=== PATIENT | female | born 1945 | race Caucasian/White ===

== ENCOUNTER → 2016-10-20 | Outpatient (CLI) | payer OTHER ==
--- NOTE | 2016-10-20 17:48 | DX ---
DEXA Bone Mineral Densitometry Clinical Indications: 71-year-old postmenopausal female with suspected estrogen deficiency low bone mineral density versus osteoporosis. Comparison: None. Technique: Bone Mineral Densitometry (BMD) by Dual Energy X-Ray Absorptiometry (DEXA) was performed utilizing the [employer] scanner. The lumbar spine was evaluated in the AP projection. Bilateral hips and one forearm were evaluated in the AP projection. Vertebral fracture assessment was also per formed. AP Lumbar Spine: The L1, L2, L3 and L4 vertebral bodies are evaluated. BMD: 1.134 gm/cm2 T-score: - 0.5 SD Z-score: 1.7 SD AP Left Hip: BMD: 0.759 gm/cm2 T-score: - 2.0 SD Z-score: 0 SD AP left Forearm: BMD: 0.784 gm/cm2 T-score: -1.0 SD Z-score: 0.7 SD Vertebral Fracture Assessment: No significant fracture deformity. Conclusion: 1. Considering the lowest measured site, the patient has low bone mineral density and is at increased risk for fracture. 2. The ten year risk for any major osteoporotic fracture is 10.1 % and for a hip fracture is 2.1 %. 3. Any bone loss in this patient is probably related to aging or estrogen deficiency. To prevent osteoporosis and to promote the patient's bone density, the following recommendations shou ld be considered: 1. Pursue a regular regimen of weightbearing and muscle strengthening exercises in order to reduce t he risk of falls and fractures (as tolerated by the patient's general medical condition). 2. Check serum hydroxy vitamin D3 level (optimal > 50 ng/ml). 3. Consider follow-up DEXA scan in two years to assess the rate of bone loss in this patient.
== END ==
LOC: BRMIMAGING 10:53
PROVIDERS: ATTEND Internal Medicine
DX: Z13.820 Encounter for screening for osteoporosis (principal); M85.80 Other specified disorders of bone density and structure, unspecified site; Z78.0 Asymptomatic menopausal state

== ENCOUNTER → 2017-11-16 | Outpatient (CLI) | payer OTHER | LOC: FIMAGING 13:19 | PROVIDERS: ATTEND Internal Medicine | DX: Z12.31 Encounter for screening mammogram for malignant neoplasm of breast (principal); Z80.3 Family history of malignant neoplasm of breast ==

== ENCOUNTER → 2018-02-09 | Outpatient (CLI) | payer OTHER | LOC: SUPIMAGING 10:15 | PROVIDERS: ATTEND Nurse Practitioner | DX: M25.551 Pain in right hip (principal); Z96.641 Presence of right artificial hip joint | CPT/HCPCS: 73551-PN ==

== ENCOUNTER → 2018-03-05 | Outpatient (CLI) | payer OTHER | LOC: FIMAGING 09:01 | PROVIDERS: ATTEND Physical Medicine & Rehabilitation | DX: M25.551 Pain in right hip (principal) ==

== ENCOUNTER → 2018-11-25 | Outpatient (CLI) | payer OTHER | LOC: FIMAGING 14:45 | PROVIDERS: ATTEND Internal Medicine | DX: Z12.31 Encounter for screening mammogram for malignant neoplasm of breast (principal) ==

== ENCOUNTER → 2018-12-11 | Outpatient (CLI) | payer OTHER | LOC: FIMAGING 10:26 | PROVIDERS: ATTEND Internal Medicine | DX: R92.8 Other abnormal and inconclusive findings on diagnostic imaging of breast (principal) ==